=== PATIENT | female | born 1995 | race Caucasian/White ===

== ENCOUNTER 2024-06-08 22:08 | Emergency (ER) | payer BC, SELFPAY ==
[2024-06-08 22:12] VITALS: BP 107/70; PULSE 88; RESP 16; TEMP 36.6; O2SAT 96; BMI 23.4
--- NOTE | 2024-06-08 22:27 | ED_ITS ---
HPI - Headache General Date Seen: 06/08/24 Chief Complaint: Headache/Migraine Stated Complaint: migraine Time Seen by Provider: 06/08/24 22:16 Source: patient Mode of arrival: ambulatory Limitations: no limitations History of Present Illness HPI Narrative: Patient is a 28-year-old female presenting to the emergency department for migraine. States she has had migraines like this before in this 1 started about 2 hours ago been gradually getting worse. States she has some photophobia and some minor phonophobia. Has some mild lightheadedness and dizziness but she states that is consistent with her previous migraines. Denies vision changes, weakness, numbness, chest pain, shortness of breath, abdominal pain. Has no other concerns noted. Again states this is just like her previous migraines. Has had migraine cocktails in the past which have helped her symptoms. Related Data Home Medications ?Medication ?Instructions ?Recorded ?Confirmed buspirone 10 mg tablet 10 mg PO BID 04/07/24 06/08/24 hydroxyzine HCl 10 mg tablet mg PO BID 04/07/24 05/18/24 bupropion HCl 150 mg 24 hr tablet, 150 mg PO QAM 05/18/24 06/08/24 extended release Previous Rx's ?Medication ?Instructions ?Recorded ondansetron 4 mg disintegrating 4 mg PO Q8H PRN nausea and 05/18/24 tablet vomiting #14 tabs Allergies Allergy/AdvReac Type Severity Reaction Status Date / Time amoxicillin Allergy Verified 06/08/24 23:06 hydrocodone Allergy Verified 06/08/24 23:06 imitrex Allergy Unknown Uncoded 05/18/24 12:26 Review of Systems Status of ROS: Reports: 10 or more systems reviewed and unremarkable except as noted in History and below Exam Narrative: Exam Narrative: Const: Well-nourished, Well-developed, in mild distress Eyes: PERRL, no conjunctival injection, and symmetrical lids HENT: Atraumatic external nose and ears. Moist mucous membranes. Neck: Symmetric, trachea midline, No thyromegaly. CVS: RRR, No murmurs or gallops. Peripheral pulses 2+ and equal in all extremities RESP: Unlabored respiratory effort. Clear to auscultation bilaterally. GI: Nontender/Nondistended, No rebound or guarding. MSK:Extremities w/o deformity, Normal Active ROM Skin: Warm, Dry. No rashes or lesions. Neuro: Normal Muscle tone, No focal neurological deficits. Psych: Awake, Alert, & Oriented x3. Appropriate mood and affect. Const: Vital Signs, click to edit/add: Vital Signs - 24 hr 06/08/24 22:12 06/08/24 22:37 Temperature 97.8 F 97.8 F Pulse Rate [Pulse Oximeter] 88 Respiratory Rate 16 Blood Pressure [Ri ght Upper Arm] 107/70 Pulse Oximetry 96 Oxygen Delivery Me thod Room Air Course Vital Signs Vital signs: Initial Vital Signs Temperature 97.8 F 06/08/24 22:12 Temperature Source Temporal Artery Scan 06/08/24 22:12 Pulse Rate 88 06/08/24 22:12 Respiratory Rate 16 06/08/24 22:12 Blood Pressure 107/70 06/08/24 22:12 Blood Pressure Mean 82 06/08/24 22:12 Blood Pressure Position Sitting 06/08/24 22:12 Pulse Oximetry 96 06/08/24 22:12 Oxygen Delivery Method Room Air 06/08/24 22:12 Vital Signs Temperature 97.8 F 06/08/24 22:12 Pulse Rate 88 06/08/24 22:12 Respiratory Rate 16 06/08/24 22:12 Blood Pressure 107/70 06/08/24 22:12 Pulse Oximetry 96 06/08/24 22:12 Oxygen Delivery Method Room Air 06/08/24 22:12 Temperature 97.8 F 06/08/24 22:37 Pulse Rate 88 06/08/24 22:12 Respiratory Rate 16 06/08/24 22:12 Blood Pressure 107/70 06/08/24 22:12 Pulse Oximetry 96 06/08/24 22:12 Oxygen Delivery Method Room Air 06/08/24 22:12 Medications Administered Medications: Generic Name Dose Route Start Last Admin Trade Name Freq PRN Reason Stop Dose Admin Diphenhydramine HCl 25 mg 06/08/24 22:26 06/08/24 22:30 Diphenhydramine 50 Mg/Ml Inj IVP 06/08/24 22:27 25 mg ONCE ONE Administration Lactated Ringer's 1,000 mls @ 1,000 mls/hr 06/08/24 22:26 06/08/24 22:30 Lactated Ringers 1000 Ml IV 06/08/24 23:25 1,000 mls/hr .Q1H ONE Administration Ketorolac Tromethamine 15 mg 06/08/24 22:26 06/08/24 22:37 Ketorolac 15 Mg/Ml Inj IVP 06/08/24 22:27 15 mg ONCE ONE Administration Metoclopramide HCl 10 mg 06/08/24 22:26 06/08/24 22:35 Metoclopramide Hcl 5 Mg/Ml Inj IVP 06/08/24 22:27 10 mg ONCE ONE Administration MDM - Headache MDM Narrative Medical decision making narrative: Patient is a 28-year-old female presenting for migraine. Subarachnoid hemorrhage seems unlikely as this feels like similar headaches and pain has been gradually getting worse. I do not believe head imaging is necessary it would be unnecessary radiation for this patient. Will try given her a migraine cocktail including Benadryl, Reglan, Toradol, 1 L of lactated Ringer's. She is agreeable to this plan. Patient is feeling better after medication feels safe for discharge. She will be discharged. Discharge Plan Discharge Clinical Impression: Migraine Qualifiers: Migraine type: unspecified Status migrainosus presence: without status migrainosus Intractability: not intractable Qualified Code(s): G43.909 - Migraine, unspecified, not intractable, without status migrainosus Patient Disposition: Home, Self-Care Condition: Improved Instructions: Migraine Headache (ED) Additional Instructions: Continue to use her home migraine medication. Return for new worsening symptoms. Prescriptions: No Action buspirone 10 mg tablet 10 mg PO BID hydroxyzine HCl 10 mg tablet PO BID bupropion HCl 150 mg tablet extended release 24 hr 150 mg PO QAM ondansetron 4 mg tablet,disintegrating 4 mg PO Q8H PRN (Reason: nausea and vomiting) Qty: 14 0RF Follow Up/Referrals: Provider,Not a Local [Non-Staff] - Stand Alone Forms: [facility] Info Instructions
[2024-06-08] MEDS: diphenhydrAMINE 50 MG/ML inj 25 MG IVP (22:30)
[2024-06-08] MEDS: LACTATED RINGERS 1000 ML 1,000 ML IV (22:30)
[2024-06-08] MEDS: METOCLOPRAMIDE HCL 5 MG/ML INJ 10 MG IVP (22:35)
[2024-06-08 22:37] VITALS: TEMP 36.6
[2024-06-08] MEDS: KETOROLAC 15 MG/ML inj IVP (22:37)
[2024-06-08 23:55] VITALS: BP 124/74; PULSE 84; RESP 16; TEMP 36.6; O2SAT 96
[2024-06-08 23:56] VITALS: TEMP 36.6
[2024-06-08 23:57] VITALS: BP 124/74; PULSE 84; RESP 16; TEMP 36.6
== END 2024-06-08 23:57 | disposition home or self-care (01) ==
PROVIDERS: Emergency Provider Student in an Organized Health Care Education/Training Program; PCP Family Medicine
DX: G43.909 Migraine, unspecified, not intractable, without status migrainosus (principal)
CPT/HCPCS: 96361; 96374; 96375; 99282; 99283; 99284; J1200; J1885; J2765; J7120

== ENCOUNTER 2024-06-23 20:13 | Emergency (ER) | payer BC, SELFPAY ==
[2024-06-23 21:09] VITALS: BP 134/89; PULSE 96; RESP 16; TEMP 36.7; O2SAT 100; BMI 23.6
--- NOTE | 2024-06-23 21:19 | ED.HA ---
HPI - Headache General Date Seen: 06/23/24 Chief Complaint: Headache/Migraine Stated Complaint: migraine Time Seen by Provider: 06/23/24 21:08 Source: patient Mode of arrival: ambulatory Limitations: no limitations History of Present Illness HPI Narrative: Patient is a 28-year-old female presenting to emergency department for a migraine. She states she has had these migraines multiple times in the past. She has been evaluated for these migraines but if any DTs multiple times in last was in this emergency department on 06/08/24 when I saw her. She states this migraine feels just like her previous migraines. States the migraine cocktail always helps and had an MRI done this past Thursday on for her migraines and she is waiting on the results. States this feels just like her previous migraines. Started at 15:00 today and has not been getting any better. States it is in her forehead and does not radiate. Does have some photophobia. No other concerns noted. Has some nausea but denies chest pain, shortness of breath, vision changes, weakness, numbness, abdominal pain. Related Data Home Medications ?Medication ?Instructions ?Recorded ?Confirmed buspirone 10 mg tablet 10 mg PO BID 04/07/24 06/08/24 hydroxyzine HCl 10 mg tablet mg PO BID 04/07/24 05/18/24 bupropion HCl 150 mg 24 hr tablet, 150 mg PO QAM 05/18/24 06/08/24 extended release Previous Rx's ?Medication ?Instructions ?Recorded ondansetron 4 mg disintegrating 4 mg PO Q8H PRN nausea and 05/18/24 tablet vomiting #14 tabs diphenhydramine HCl 25 mg capsule 25 mg PO TID PRN #20 caps 06/23/24 (Benadryl) ketorolac 10 mg tablet 10 mg PO Q6H PRN pain #20 tabs 06/23/24 metoclopramide HCl 10 mg tablet 10 mg PO Q6H PRN migraine headache 06/23/24 (Reglan) #20 tabs Allergies Allergy/AdvReac Type Severity Reaction Status Date / Time amoxicillin Allergy Verified 06/08/24 23:06 hydrocodone Allergy Verified 06/08/24 23:06 imitrex Allergy Unknown Uncoded 05/18/24 12:26 Review of Systems Status of ROS: Reports: 10 or more systems reviewed and unremarkable except as noted in History and below [facility] Medical History Migraine ?G43.909 - Migraine, unspecified, not intractable, without status migrainosus (ICD-10) Surgical History No significant past surgical history Social History Smoking Status: Never smoker Second hand tobacco smoke exposure: No How often do you have a drink containing alcohol: never AUDIT-C Alcohol total score: 0 Non-prescribed substance use: denies use Exam Narrative: Exam Narrative: Const: Well-nourished, Well-developed, in mild distress Eyes: PERRL, no conjunctival injection, and symmetrical lids HENT: Atraumatic external nose and ears. Moist mucous membranes. Neck: Symmetric, trachea midline, No thyromegaly. CVS: RRR, No murmurs or gallops. Peripheral pulses 2+ and equal in all extremities RESP: Unlabored respiratory effort. Clear to auscultation bilaterally. GI: Nontender/Nondistended, No rebound or guarding. MSK:Extremities w/o deformity, Normal Active ROM Skin: Warm, Dry. No rashes or lesions. Neuro: Normal Muscle tone, No focal neurological deficits. Psych: Awake, Alert, & Oriented x3. Appropriate mood and affect. Const: Vital Signs, click to edit/add: Vital Signs - 24 hr 06/23/24 21:09 06/23/24 21:22 Temperature 98.1 F 98.1 F Pulse Rate [Pulse Oximeter] 96 Respiratory Rate 16 Blood Pressure [Le ft Upper Arm] 134/89 Pulse Oximetry 100 Oxygen Delivery Me thod Room Air Course Vital Signs Vital signs: Initial Vital Signs Temperature 98.1 F 06/23/24 21:09 Temperature Source Temporal Artery Scan 06/23/24 21:09 Pulse Rate 96 06/23/24 21:09 Respiratory Rate 16 06/23/24 21:09 Blood Pressure 134/89 06/23/24 21:09 Blood Pressure Mean 104 06/23/24 21:09 Blood Pressure Position Sitting 06/23/24 21:09 Pulse Oximetry 100 06/23/24 21:09 Oxygen Delivery Method Room Air 06/23/24 21:09 Vital Signs Temperature 98.1 F 06/23/24 21:09 Pulse Rate 96 06/23/24 21:09 Respiratory Rate 16 06/23/24 21:09 Blood Pressure 134/89 06/23/24 21:09 Pulse Oximetry 100 06/23/24 21:09 Oxygen Delivery Method Room Air 06/23/24 21:09 Temperature 98.1 F 06/23/24 21:22 Pulse Rate 96 06/23/24 21:09 Respiratory Rate 16 06/23/24 21:09 Blood Pressure 134/89 06/23/24 21:09 Pulse Oximetry 100 06/23/24 21:09 Oxygen Delivery Method Room Air 06/23/24 21:09 Medications Administered Medications: Discontinued Medications Generic Name Dose Route Start Last Admin Trade Name Jf PRN Reason Stop Dose Admin Diphenhydramine HCl 25 mg 06/23/24 21:08 06/23/24 21:22 Diphenhydramine 25 Mg Capsule PO 06/23/24 21:09 25 mg ONCE ONE Administration Ketorolac Tromethamine 10 mg 06/23/24 21:08 06/23/24 21:22 Ketorolac 10 Mg Tablet PO 06/23/24 21:09 10 mg ONCE ONE Administration Metoclopramide HCl 10 mg 06/23/24 21:08 06/23/24 21:23 Metoclopramide 10 Mg Tablet PO 06/23/24 21:09 10 mg ONCE ONE Administration MDM - Headache MDM Narrative Medical decision making narrative: Patient is a 28-year-old female presenting for a headache. She has had these migraines multiple times before. Do not believe imaging is necessary and she has got an MRI done a few days ago. She states she gets but min poke to many times and was hoping she can try some oral medication to see if that helps. Will give her oral Reglan, Benadryl, Toradol. She states she has not feel dehydrated does not think she needs fluids. She states she is feeling much better after these medications now. She feels safe for discharge. I will discharge her home and prescriber Toradol, Reglan, Benadryl. I tried to see the results of her MRI but that has not been read yet via [facility]. Discharge Plan Discharge Clinical Impression: Migraine Qualifiers: Migraine type: unspecified Status migrainosus presence: without status migrainosus Intractability: not intractable Qualified Code(s): G43.909 - Migraine, unspecified, not intractable, without status migrainosus Patient Disposition: Home, Self-Care Condition: Improved Instructions: Migraine Headache (ED) Additional Instructions: I will prescribe the Toradol, Benadryl, Reglan for your migraine. Take as directed. Of note the Benadryl is because can make patient's feel very jittery and helps contract though symptoms. Return for new or worsening symptoms Prescriptions: New ketorolac 10 mg tablet 10 mg PO Q6H PRN (Reason: pain) Qty: 20 0RF Rx Instructions: maximum total duration of 5 days from all oral, intranasal, or parenteral formulations metoclopramide HCl [Reglan] 10 mg tablet 10 mg PO Q6H PRN (Reason: migraine headache) Qty: 20 0RF diphenhydramine HCl [Benadryl] 25 mg capsule 25 mg PO TID PRNQty: 20 0RF Rx Instructions: Can take when using the Reglan to counteract the jitteriness No Action buspirone 10 mg tablet 10 mg PO BID hydroxyzine HCl 10 mg tablet PO BID bupropion HCl 150 mg tablet extended release 24 hr 150 mg PO QAM ondansetron 4 mg tablet,disintegrating 4 mg PO Q8H PRN (Reason: nausea and vomiting) Qty: 14 0RF Follow Up/Referrals: Heri Matta MD [Primary Care Provider] - Stand Alone [facility]: [facility] Instructions
[2024-06-23 21:22] VITALS: TEMP 36.7
[2024-06-23] MEDS: diphenhydrAMINE 25 MG CAPSULE PO (21:22)
[2024-06-23] MEDS: KETOROLAC 10 MG TABLET PO (21:22)
[2024-06-23] MEDS: METOCLOPRAMIDE 10 MG TABLET PO (21:23)
[2024-06-23 22:09] VITALS: BP 122/70; PULSE 85; RESP 16; TEMP 36.7; O2SAT 100
[2024-06-23 22:12] VITALS: BP 122/70; PULSE 85; RESP 16; TEMP 36.7
== END 2024-06-23 22:12 | disposition home or self-care (01) ==
PROVIDERS: Emergency Provider Student in an Organized Health Care Education/Training Program; PCP Family Medicine
DX: G43.909 Migraine, unspecified, not intractable, without status migrainosus (principal)
CPT/HCPCS: 99282; 99283; A9270